=== PATIENT | female | born 1990 ===

== ENCOUNTER 2018-06-07 05:15 | Day surgery (SDC) | payer OTHER ==
--- NOTE | 2018-06-06 05:26 | PDGENHP ---
History and Physical History and Physical: Assessment and Plan: 1. Pelvic pain in female Dacia's history and exam findings are highly suggestive of pelvic endometriosis. She has been on a continuous control pills for 12 years but continues to suffer from significant pain which interferes with the quality of her life. We reviewed all conservative and surgical options. At the end of our discussion she is interested in laparoscopy with robotic excision of endometriosis. 2. Dysmenorrhea 3. Dyspareunia in female Subjective: Patient ID: Dacia Duncan is a 27 y.o. female who presents to [facility] for pelvic pain. YOSEF Pederson is a 27-year-old 0 female. She has a long history of painful and heavy menses. She has it been on a control pill for 12 years. She has been using Mary mostly in a continuous fashion. She tends to have some breakthrough bleeding after several months. As result she often will have a pill free week to allow herself to have a menses. She has pain when she has menstrual bleeding. It is low in the pelvis as well as in the low back. She typically will bleed 4-7 days. The first 2-3 are the heaviest when she will use a pad pad and tampon having to change it every hour. Additionally she has deep dyspareunia which feels similar to her dysmenorrhea. She often has more pain after intercourse. Finally she has alternating constipation and diarrhea especially during her menses. She uses nonsteroidal medications which provides temporary relief. Her symptoms have been worsening over the last few years. She has no dyschezia. She lives in [place] and works as a customer orders clerk for a [employer]. PastMedicalHistory Past Medical History: Diagnosis Date Depression Heart disease Mitral Valve Prolapse Mental disorder Vitamin D deficiency PastSurgicalHistory Past Surgical History: Procedure Laterality Date HIP SURGERY Left 2011 CURRENT MEDICATIONS: Current Outpatient Prescriptions Medication Sig buspirone HCl (BUSPAR PO) drospirenone-eth estradiol (MARY, 28,) 3-0.02 mg per tablet Take 1 tablet by mouth daily. ergocalciferol, vitamin D2, (DRISDOL) 50,000 unit capsule Take 50,000 Units by mouth once a week. No current facility-administered medications for this visit. ALLERGIES: Patient has no known allergies. I have reviewed, verified and agree with the past medical, surgical, , family, social and ROS history as documented by the RN today. Objective: Vital Signs: Visit Vitals BP 122/78 Pulse 101 Temp 37.3 C (99.1 F) (Temporal Artery) Resp 16 Ht 1.448 m (4' 9") Wt 52.1 kg (114 lb 12.8 oz) SpO2 98% BMI 24.84 kg/m Physical Exam Gen: This is an alert, well developed woman in no distress. Neuro: She moves all extremities. Psych: She is appropriate, oriented, with normal affect. Neck: No thyroid enlargement, adenopathy, or tenderness. Lungs: Clear to ascultation, no wheezes or rales. Heart: Regular rate and rhythm without obvious murmurs. Abdomen: Soft, non-tender, without guarding, rebound, or masses. Extremities: No edema or cyanosis. Pelvic: Normal external genitalia. Non-gaping introitus, vagina without discharge, adequately estrogenized, no significant prolapse. Cervix without lesions or discharge. Uterus normal sized. Adnexa non-tender without enlargement. She is tender surrounding the cervix especially posteriorly. The posterior cul-de-sac is tender. No obvious nodularity is palpable. She has almost no uterine mobility. DATA: I have reviewed the pertinent medical records. PELVIC ULTRASOUND Indication: Pelvic pain. Findings: The uterus is anteflexed and measures 6.5 x 3.3 x 3.9 cm. The endometrium more measures 1 mm. No uterine abnormalities are seen. The right ovary measures 1.5 x 0.9 cm. There is a suggestion of adhesions to the right aspect of the uterus. The left ovary is not well-visualized. The uterus has minimal mobility. There is no evidence of adhesions to the rectum. Impression: Normal anatomic ultrasound with possible adhesions of the right ovary to the lateral aspect the uterus. Minimal uterine mobility. TIME/COMMUNICATION: I personally spent a total of 50 minutes. Of that 35 minutes was counseling/ coordination of patient's care. See my note above for details. Iglesia Everett MD Board Certified Female Pelvic Medicine and Reconstructive Surgery Director of Minimally Invasive Gynecologic Surgery, [facility] Surgeon in Minimally Invasive Gynecologic Surgery [facility] Surgeon in Robotic Surgery
[2018-06-07] MEDS ORDERED: PHENAZOPYRIDINE HCL 200 MG TAB PO ONE (05:45)
[2018-06-07] MEDS ORDERED: GABAPENTIN 300 MG CAP PO ONE (05:45)
[2018-06-07] MEDS ORDERED: ACETAMINOPHEN 500 MG TAB PO ONE (05:45)
[2018-06-07] MEDS ORDERED: ceFAZolin 2 GM/DEXTROSE 100 ML IV ONE (05:45)
[2018-06-07] MEDS ORDERED: LR 1,000 ML IV ONE (05:46)
[2018-06-07] MEDS ORDERED: LIDOCAINE 1% 2 ML INJ ID PRN (05:46)
--- NOTE | 2018-06-07 07:00 | PDHPUP ---
History & Physical Update H&P update statement: This history and physical update is based on an assessment of the patient which was completed after admission or registration (within 24 hours), but prior to the surgery/procedure. H&P update: H&P reviewed & patient examined, no change in patient's condition since H&P completed
[2018-06-07] MEDS ORDERED: MIDAZOLAM 2 MG/2 ML VIAL ONE (07:10)
[2018-06-07] MEDS ORDERED: ONDANSETRON 4 MG/2 ML VIAL ONE (07:11)
[2018-06-07] MEDS ORDERED: LIDOCAINE 2% 100 MG/5 ML SYR ONE (07:11)
[2018-06-07] MEDS ORDERED: DEXAMETHASONE 4 MG/ML VIAL ONE (07:11)
[2018-06-07] MEDS ORDERED: KETOROLAC 30 MG/1 ML SDV ONE (07:11)
[2018-06-07] MEDS ORDERED: PROPOFOL 200 MG/20 ML VIAL ONE (07:12)
[2018-06-07] MEDS ORDERED: fentaNYL 250 MCG/5 ML INJ ONE (07:12)
[2018-06-07] MEDS ORDERED: ROCURONIUM 50 MG/5 ML VIAL ONE (07:14)
[2018-06-07] MEDS ORDERED: GLYCOPYRROLATE 0.2 MG/1 ML VIAL ONE (07:14)
[2018-06-07] MEDS ORDERED: RANITIDINE 50 MG/2 ML VIAL ONE (07:14)
[2018-06-07] MEDS ORDERED: PHENYLEPHRINE HCL 100 MCG/ML SYR ONE (07:14)
[2018-06-07] MEDS ORDERED: BUPIVACAINE/EPI 0.5% 30 ML SDV ONE (07:33)
[2018-06-07] MEDS ORDERED: NALOXONE HCL 0.4 MG/ML INJ IVP PRN (07:59)
--- NOTE | 2018-06-07 07:59 | PDANEPAE ---
ANE History of Present Illness endometriosis, here for ablation of endometriosis ANE Past Medical History - Cardiovascular History Hx Hypertension: No Hx Arrhythmias: Yes Hx Chest Pain: No Hx Coronary Artery / Peripheral Vascular Disease: No Hx CHF / Valvular Disease: No Hx Palpitations: No Cardiovascular History Comment: has been told she has a heart murmur - Pulmonary History Hx COPD: No Hx Asthma/Reactive Airway Disease: No Hx Recent Upper Respiratory Infection: No Hx Oxygen in Use at Home: No Hx Sleep Apnea: No Sleep Apnea Screening Result - Last Documented: Negative - Neurologic History Hx Cerebrovascular Accident: No Hx Seizures: No Hx Dementia: No - Endocrine History Hx Diabetes: No - Renal History Hx Renal Disorders: No - Liver History Hx Hepatic Disorders: No - Neurological & Psychiatric Hx Hx Neurological and Psychiatric Disorders: Yes Neurological / Psychiatric History Comment: generalized anxiety. depression - Cancer History Hx Cancer: No - Congenital Disorder History Hx Congenital Disorders: No - GI History Hx Gastrointestinal Disorders: No - Other Health History Other Health History: wears glasses - Chronic Pain History Chronic Pain: No - Surgical History Prior Surgeries: left hip surgery 2011 ANE Review of Systems Review of Systems: - Exercise capacity METS (RN): 4 METS ANE Patient History - Allergies Allergies/Adverse Reactions: No Known Allergies Allergy (Verified 05/22/18 11:49) - Home Medications Home Medications: Vitamin D3 05/22/18 [Last Taken 06/06/18] Angy 28 Tablet 05/22/18 [Last Taken 06/07/18 04:30] - NPO status NPO Since - Liquids (Date): 06/07/18 NPO Since - Liquids (Time): 06:00 NPO Since - Solids (Date): 06/06/18 NPO Since - Solids (Time): 23:30 - Smoking Hx Smoking Status: Never smoked - Family Anes Hx Family Hx Anesthesia Complications: none ANE Labs/Vital Signs - Vital Signs Blood Pressure: 124/83 Heart Rate: 83 Respiratory Rate: 13 O2 Sat (%): 100 Height: 149.86 cm Weight: 49.895 kg ANE Physical Exam - Airway Neck exam: FROM Mallampati Score: Class 1 Mouth exam: normal dental/mouth exam - Pulmonary Pulmonary: no respiratory distress - Cardiovascular Cardiovascular: regular rate and rhythym, no murmur, rub, or gallop - ASA Status ASA Status: II (Admits to buspar for depression daily, no tachyarrythmias or cp , syncope) ANE Anesthesia Plan Anesthesia Plan: general endotracheal anesthesia
[2018-06-07] MEDS ORDERED: PROMETHAZINE HCL 25 MG/ML INJ IVP PRN (08:14)
[2018-06-07] MEDS ORDERED: fentaNYL 100 MCG/2 ML INJ IVP PRN (08:14)
[2018-06-07] MEDS ORDERED: DIAZEPAM 5 MG/ML 1 ML SYR IVP PRN (08:14)
[2018-06-07] MEDS ORDERED: oxyCODONE IR 5 MG TAB PO PRN (08:14)
[2018-06-07] MEDS ORDERED: HYDROmorphONE/DILAUDID 2 MG/ML INJ IVP PRN (08:14)
[2018-06-07] MEDS ORDERED: ACETAMINOPHEN 500 MG TAB PO PRN (08:14)
[2018-06-07] MEDS ORDERED: MEPERIDINE 25 MG/ML SYR IVP ONE (08:15)
[2018-06-07] MEDS ORDERED: SUGAMMADEX SODIUM 200 MG/2 ML VIAL IVP ONE (08:37)
[2018-06-07] MEDS: LR 500 ML IV PRN ×3 (09:00→09:53)
--- NOTE | 2018-06-07 09:12 | POSTOPPROG ---
Post Op Note Date of Operation: 06/07/18 Surgeon: Iglesia Everett Career Guidance Technician: Elizabet Ford Anesthesia: GET(General Endotracheal) Pre-op Diagnosis: Endometriosis Post-op Diagnosis: Same Procedure: Robotic excision of endo, bilat ureterolysis and ovarian pexy Findings: Endo Inf/Abcess present in the surg proc area at time of surgery?: No EBL: Minimal Complications: None
[2018-06-07] MEDS ORDERED: oxyCODONE IR 5 MG TAB ONE (09:40)
--- NOTE | 2018-06-07 10:12 | GOP ---
DATE OF OPERATION: 06/07/2018 SURGEON: Iglesia Everett MD STAGING TECHNICIAN: Elizabet Ford CFA. ANESTHESIA: General. PREOPERATIVE DIAGNOSIS: 1. Endometriosis. 2. Dysmenorrhea. 3. Cyclic pelvic pain. POSTOPERATIVE DIAGNOSIS: 1. Endometriosis. 2. Dysmenorrhea. 3. Cyclic pelvic pain. PROCEDURE PERFORMED: 1. Robotic-assisted laparoscopic excision of endometriosis in the anterior and posterior cul-de-sacs bilateral ovarian fossae. 2. Excision of rectal lesion. 3. Bilateral ureterolysis. 4. Bilateral ovarian pexy. FINDINGS: SPECIMENS: 1. Pelvic peritoneum with endometriosis. 1. Rectal lesion. 2. ESTIMATED BLOOD LOSS: Scant. DESCRIPTION OF PROCEDURE: Dacia was taken to the operating room where she was identified. General anesthesia was administered and found to be adequate. She was placed in the lithotomy position and prepared and draped in normal sterile fashion. A Hulka tenaculum was placed in the uterus. A Roland catheter was placed in her bladder. A 1 cm infraumbilical incision was made with a scalpel. The Veress needle with CO2 gas flowing was a dvanced into the peritoneal cavity. The abdomen was insufflated with carbon dioxide gas. The 12 mm trocar followed by the laparoscope were then inserted. Two lateral ports were placed on the right an d 1 on the left under direct visualization. The upper abdomen was examined. There was no evidence o f endometriosis on either diaphragm, liver, gallbladder, bowel. She then was placed in Trendelenburg position and the da Guerita robot docked on the left side. The instruments were then brought into the abdominal cavity under direct visualization. She was noted to have a slightly deeper lesion of endo metriosis in the anterior cul-de-sac just to the right of midline at the reflection of the cervix. S he had multiple lesions in the posterior cul-de-sac, both uterosacral ligaments, and both ovarian fos sophie overlying both ureters. There was a lesion on the distal rectum just before the peritoneal refle ction. There were several lesions on the left pelvic brim. The pelvic brim lesions were excised fol lowed by the rectal lesion, which extended approximately 30% into the muscularis. The entire posteri or cul-de-sac peritoneum from the distal rectum up to and including the serosal surface of the cervix and laterally to the uterosacral ligaments was then completely excised. The patient required a bila teral ureterolysis to safely remove the overlying endometriosis and peritoneum. The peritoneum at th e pelvic brims was incised. The ureters were gently dissected free and lateralized off the overlying peritoneum and endometriosis from the pelvic brim all the way out of the uterine arteries. The enti re ovarian fossa peritoneum bilaterally was then completely excised. Given cyclic pelvic pain a bila teral ovarian pexy was performed. This was accomplished with 3-0 Vicryl Rapide suture to attach each ovary to the ipsilateral round ligaments near the internal omental rings. The pelvis was then copio usly irrigated with sterile saline, and hemostasis was present. The robot was then undocked. The fa scia was closed with 0 Vicryl, skin with 4-0 Monocryl, and Steri-Strips. Anesthesia was reversed. T he patient taken to PACU awake in stable condition. COMPLICATIONS: None. DISPOSITION: Patient stable to PACU. /[id number]/MODL
[2018-06-07 10:19] VITALS: BP 94/82
== END 2018-06-07 12:03 | disposition home or self-care (01) ==
LOC: FSGY 05:15
PROVIDERS: ATTEND Obstetrics & Gynecology
PROC: 0UDB8ZX Extraction of Endometrium, Via Natural or Artificial Opening Endoscopic, Diagnostic (ICD-10-PCS; principal; 2018-06-07 07:15)
PROC: 0DBP8ZX Excision of Rectum, Via Natural or Artificial Opening Endoscopic, Diagnostic (ICD-10-PCS; principal; 2018-06-07 07:15)
PROC: 0UN98ZZ Release Uterus, Via Natural or Artificial Opening Endoscopic (ICD-10-PCS; principal; 2018-06-07 07:15)
DX: N80.9 Endometriosis, unspecified (principal); N94.6 Dysmenorrhea, unspecified; R10.2 Pelvic and perineal pain
CPT/HCPCS: J0690; J1100; J1885; J2001; J2250; J2370; J2405; J2704; J2780; J3010